=== PATIENT | male | born 1980 | race Caucasian/White ===

== ENCOUNTER 2017-05-21 17:36 | Emergency (ER) | payer OTHER, BC ==
[~2017-05-21] VITALS: Ht 182.9 cm; Wt 79.6 kg
[2017-05-21] MEDS ORDERED: FLEXERIL10 MG PO (20:39)
[2017-05-21 20:45] VITALS: BP 129/91
== END 2017-05-21 20:51 | disposition home or self-care (01) ==
LOC: EME 17:36
DX: S13.4XXA Sprain of ligaments of cervical spine, initial encounter (principal); R51 Headache; V43.51XA Car driver injured in collision with sport utility vehicle in traffic accident, initial encounter; Y92.411 Interstate highway as the place of occurrence of the external cause
CPT/HCPCS: 70450; 72125; 99281; 99284